=== PATIENT | male | born 2000 | race African-American/Black ===

== ENCOUNTER 2022-05-15 09:28 | Emergency (ER) | payer MEDICAID ==
[~2022-05-15] VITALS: Ht 170.2 cm; Wt 80.0 kg
[2022-05-15] MEDS ORDERED: ETOMIDATE 2MG/ML 10ML VIAL IV NR (11:00)
[2022-05-15 12:34] VITALS: BP 118/68
== END 2022-05-15 13:02 | disposition home or self-care (01) ==
LOC: ER 10:56
DX: S43.014A Anterior dislocation of right humerus, initial encounter (principal); X58.XXXA Exposure to other specified factors, initial encounter; Y93.84 Activity, sleeping; Y92.013 Bedroom of single-family (private) house as the place of occurrence of the external cause
CPT/HCPCS: 23650; 73030; 99152; 99285; J3490; Z7610; A4565